=== PATIENT | male | born 1950 | race Caucasian/White ===

== ENCOUNTER 2017-08-16 11:47 | Inpatient (IN) | payer OTHER ==
[2017-08-16] VITALS (7 sets, daily range): BP systolic 92–143; BP diastolic 52–94
[~2017-08-16] VITALS: Ht 170.2 cm; Wt 73.9 kg
[~2017-08-16 11:47] MED LIST: ALPH-E-MIXED-4400 IU PO; ATORVASTATIN CA10 MG PO; CHLORDIAZEPOXID25 M3 PO; CO-Q-10 100 MG-1 SGL PO; FISH OIL REGUL300 MG PO; FOLIC ACID1 M1 PO; HARD NAILS2500 MCG PO; LIPITOR20 M2 PO; LISINOPRIL20 MG PO; MINOCYCLINE HC100 MG PO; MULTIVITAMIN1 TAB PO; PRILOSEC20 MG PO; PROPRANOLOL HCL10 M1 PO; RITE AID BIO2500 MCG PO; VITAMIN B-1100 MG PO; VITAMIN B12500 MCG PO; VITAMIN C500 M3 PO; VITAMIN D32000 I1 PO
[2017-08-16 12:26] LABS: ABSOLUTE BASOPHIL COUNT 0 /CUMM (0.0-0.2); ABSOLUTE EOSINOPHIL COUNT 0 /CUMM (0.0-0.7); ABSOLUTE GRANULOCYTE CT 6.1 /CUMM (1.4-6.5); ABSOLUTE LYMPH COUNT 0.8 /CUMM (1.2-3.4); ABSOLUTE MONOCYTE COUNT 0.6 /CUMM (0.10-0.60); BASOPHIL % 0.6 % (0.0-2.0); EOSINOPHIL % 0.5 % (0-5); GRANULOCYTE % 79.8 % (42.2-75.2); HEMATOCRIT 42.6 % (42-52); MEAN CORPUSCULAR HGB 35.5 PG (27.0-31.0); MEAN CORPUSCULAR HGB CONC 34.9 G/DL (33.0-37.0); MEAN CORPUSCULAR VOLUME 101.6 FL (80.0-94.0); PLATELET COUNT 134 /CUMM (130-400); RBC DISTRIBUTION WIDTH 14.3 % (11.5-14.5); RED BLOOD CELL CT 4.19 /CUMM (4.70-6.10); WHITE BLOOD CELL COUNT 7.7 /CUMM (4.8-10.8)
--- NOTE | 2017-08-16 17:06 | CT SCAN REPORT ---
EXAMINATION: CT ABDOMEN AND PELVIS WITHOUT CONTRAST CLINICAL INFORMATION: Pancreatitis. COMPARISON: CT abdomen and pelvis 03/02/2014. TECHNIQUE: Multidetector volumetric imaging was performed from the superior aspect of the liver through the pubic symphysis. Sagittal and coronal reformatted images were obtained on the technologist's workstation. DLP: 445.59 mGy-cm FINDINGS: LUNG BASES: The visualized lung bases are unremarkable. There are coronary artery calcifications present. There is no pericardial effusion. LIVER, GALLBLADDER, AND BILIARY TREE: Low attenuation of liver parenchyma due to fatty change. No focal liver lesion. No intrahepatic bile duct dilatation. The gallbladder is unremarkable with no evidence of radiopaque gallstones, gallbladder wall thickening, or obvious pericholecystic inflammatory changes. PANCREAS: There is edema around the pancreatic body and tail with fluid extending along the anterior pararenal fascia and around the left upper quadrant in the paracolic gutter and adjacent to the spleen. There is no pseudocyst. The pancreas is of normal size. There is no pancreatic duct dilatation. There is a 1.7 x 1.3 cm nodule at the anterior lateral surface of the body and tail of the pancreas, axial image 236 (3), coronal image 41. This has a density measurement of 41 Hounsfield units similar to the adjacent pancreatic tissue. Has a thin hyperdense rim. This was not present on the CAT scan of 03/02/2014. Could be small pseudocyst. No pancreatic calcification. No pancreatic duct dilatation. SPLEEN: Unremarkable. ADRENAL GLANDS: Unremarkable. KIDNEYS AND URETERS: The kidneys are normal in size, shape, and attenuation. No hydronephrosis, hydroureter, or calculi seen. No perinephric stranding. BLADDER: Unremarkable. GASTROINTESTINAL TRACT: There are a few diverticula of the left colon and sigmoid, but no diverticulitis. There is no acute change of the bowel. No bowel obstruction. No bowel wall thickening or edema. The appendix is not seen. The small bowel loops are unremarkable. There is a small hiatal hernia. ABDOMINAL WALL: No significant hernia is appreciated. LYMPH NODES: Normal. VASCULAR: There are vascular wall calcifications of the aorta without aneurysm. PELVIC VISCERA: Prostate measures 5.3 cm transverse. OSSEOUS STRUCTURES: Degenerative spondylosis spine with multilevel endplate spurring of the lumbar and lower thoracic vertebrae. There is a minimal anterior listhesis of L4 and L5 due to facet joint degenerative change. There is no spondylolysis. IMPRESSION: 1. Edema around the body and tail of pancreas consistent with pancreatitis. 2. Small nodule at the surface of the body/tail of the pancreas, new since the CAT scan of 02/27/2014. Possible small developing pseudocyst. This can be further assessed with MRI. 3. Mild diverticulosis of left colon without diverticulitis. 4. Diffuse fatty change of liver.
--- NOTE | 2017-08-16 17:15 | ED GI/GU/ABDOMINAL COMPLAINT ---
History of Present Illness General Chief Complaint: General Adult Stated Complaint: SIB ASUNCION, PANCREATITES PER PT Source: patient, family, old records Exam Limitations: no limitations Vital Signs & Intake/Output Vital Signs & Intake/Output Vital Signs Date Time Temp Pulse Resp B/P B/P Pulse O2 O2 Flow FiO2 Mean Ox Delivery Rate 08/17 0722 100.0 116 20 108/70 95 Room Air 08/16 2236 99.5 113 20 139/94 97 Room Air 08/16 2056 97.7 112 20 132/90 94 Room Air 08/16 2034 112 16 138/89 95 Room Air 08/16 1857 98.4 109 16 132/90 08/16 1855 98.4 109 16 132/90 96 Room Air 08/16 1722 97.8 117 16 143/87 08/16 1710 97.8 117 16 143/87 96 Room Air 08/16 1605 97.6 101 16 132/92 08/16 1602 97.6 101 16 132/92 96 Room Air 08/16 1455 97.5 108 20 130/94 08/16 1455 97.5 108 20 130/94 96 Room Air 08/16 1355 97.7 133 20 157/102 97 Room Air 08/16 1204 97.5 72 16 92/52 08/16 1158 97.5 72 16 92/52 97 Room Air ED Intake and Output 08/17 0000 08/16 1200 Intake Total 200 Output Total Balance 200 Intake, IV 200 Patient 164 lb Weight Weight Bed scale Measurement Method Allergies Coded Allergies: NO KNOWN ALLERGIES (04/12/11) Reconcile Medications Atorvastatin Calcium (Lipitor) 20 MG TABLET 1 TAB PO DAILY CHOLESTEROL ( Reported) Triage Note: PT TO ED SIB DR MUIR. PT HAS A HX OF PANCREATITIS, STATES IT FEELS THE SAME. IS HAVING 7/10 ABD PAIN. REPORTS HE IS ALSO DETOXING FROM ETOH. LAST DRINK ON WEDNESDAY. USUALLY DRINKS ABOUT 2-3 PINTS A DAY. LAST DETOX 1.5 YEARS AGO WHEN HE WAS HERE AND ADMITTED TO THE ICU. STATES THAT HE HAS BEEN HAVING HALLUCINATIONS THAT CAN LAST 6 HOURS. STATES THAT THE HALLUCINATIONS HAVE BEEN OF PEOPLE AND ANIMALS WALKING AROUND. HAS ALSO EXPERIENCED AUDITORY HALLUCINATIONS. DENIES ANY HALLUCINATIONS AT THIS TIME. CURRENTLY FEELS SHAKEY, PT UNSTEADY ON FEET AND NEEDS ASSIST X2. ALSO HAS A MINOR NIEVES AT THIS TIME. Triage Nurses Notes Reviewed? yes Onset: Gradual Duration: day(s):, constant, continues in ED, getting worse Quality/Severity: severe Location: epigastric HPI: Patient presents for evaluation of possible pancreatitis. Patient has a past medical history of pancreatitis secondary to alcohol intake. He states he had an onset, gradually, of abdominal pain about 2 weeks ago. It is been a dull aching constant pain with occasional low back pain. Patient has vomited but otherwise denies fever, cold symptoms, diarrhea, dysuria or bleeding. Last alcohol intake was about 3 days ago. Patient typically drinks about 2-3 pints of vodka daily. Past History Travel History Traveled to [place] past 21 day No Medical History Any Pertinent Medical History? see below for history Neurological: 12/19/2015: FALL EENT: 12/19/2015: FXD NOSE POST FALL Cardiovascular: hypertension, hyperlipidemia Respiratory: NONE Gastrointestinal: GERD, hiatal hernia, TG/EtOH PANCREATITIS DIVERTICULOSIS COLI COLON TVA/TA HP-NEGATIVE GASTRITIS BENIGN DISTAL ESOPHAGEAL STRICTURE DISTAL ESOPHAGEAL DIVERTICULUM ESOPHAGEAL TERTIARY CONTRACTIONS Hepatic: FATTY LIVER/EtOH ABUSE Renal: NONE Musculoskeletal: falls Psychiatric: alcohol dependence Endocrine: NONE Blood Disorders: anemia (MACROCYTIC), pancytopenia (PROB EtOH RELATED) Cancer(s): NONE AIR MARSHAL/Reproductive: NONE History of MRSA: No History of VRE: No History of CDIFF: No Surgical History Surgical History: N Psychosocial History Who do you live with Spouse Services at Home None What is your primary language [place] Citizen Tobacco Use: Never used Family History Family History, If Any: MOTHER FH: hyperlipidemia TIAs FATHER, , Age 79; Cause: OBS (organic brain syndrome). BROTHER Hx Contributory? No Review of Systems Review of Systems Constitutional: Reports: no symptoms. EENTM: Reports: no symptoms. Respiratory: Reports: no symptoms. Cardiovascular: Reports: no symptoms. GI: Reports: see HPI. Genitourinary: Reports: no symptoms. Musculoskeletal: Reports: no symptoms. Skin: Reports: no symptoms. Neurological/Psychological: Reports: no symptoms. Hematologic/Endocrine: Reports: no symptoms. Immunologic/Allergic: Reports: no symptoms. All Other Systems: Reviewed and Negative Physical Exam Physical Exam Gastrointestinal: SEE BELOW Comments: Gen.: Well-nourished, well-developed, no acute respiratory distress. Head: Normocephalic, atraumatic. Eyes: Normal inspection bilaterally Ears: Normal inspection bilaterally Nose: Normal inspection Throat/mouth : Moist mucosa Neck: Supple, full range of motion, no goiter Heart: Regular rate and rhythm, no murmurs rubs or gallops Lungs: Clear to auscultation bilaterally with normal air entry Chest: Nontender Back: Normal range of motion Abdomen: Soft, epigastric tenderness with brief voluntary guarding but no rebound nondistended, normal bowel sounds, no apparent hepatomegaly. Extremities: Normal range of motion grossly, equal radial pulses, no cyanosis clubbing or edema Neurologic: Cranial nerves grossly intact, speech is clear Skin: warm and dry Psychiatric: Calm, cooperative, no apparent delusions or hallucinations Core Measures ACS in differential dx? No Sepsis Present: No Sepsis Focused Exam Completed? No Progress Differential Diagnosis: BILIARY COLIC, PANCREATITIS, PEPTIC ULCER DISEASE, GASTRITIS, DIVERTICULITIS Plan of Care: Orders Procedure Date/time Status Nothing by Mouth 08/17 B Active Change service to 08/17 0752 Active US-LIMITED ABDOMEN 08/17 0600 Active HEPATIC FUNCTION PANEL 08/17 0600 Active C-REACTIVE PROTEIN 08/17 0600 Active CBC WITHOUT DIFFERENTIAL 08/17 0600 Active BASIC ELECTROLYTES PLUS BUN&CR 08/17 0600 Active Lab Add-on Test 08/17 UNK Active Weight 08/16 210 Complete Vital Signs 08/17 2107 Active Teach/Educate 08/17 2107 Active Pain Treatment and Response 08/17 2107 Active Nutritional Intake, Monitor 08/17 2107 Active Isolation 08/17 2107 Active Intake & Output 08/17 2107 Active Patient Care Conference 08/17 2107 Active Activity/Ambulation 08/17 2107 Active Pathway - chart 08/16 194 Active House Staff 08/16 1948 Active Misc Message 08/16 1754 Active ED Holding Orders 08/16 1754 Active Vital Signs 08/16 1754 Active Code Status 08/16 1754 Active Patient Data 08/16 1733 Active Admit to inpatient 08/16 1732 Active Pathway - chart 08/16 1601 Active CIWA 08/16 1601 Active Intake & Output 08/16 1250 Active PHOSPHORUS 08/16 1205 Complete MAGNESIUM 08/16 1205 Complete LDH (LACT ACID DEHYDROGENASE) 08/16 1205 Complete ETHANOL 08/16 1205 Complete DIRECT BILIRUBIN 08/16 1205 Complete C-REACTIVE PROTEIN 08/16 1205 Complete TROPONIN LEVEL 08/16 1153 Complete LIPASE 08/16 1153 Complete COMPREHENSIVE METABOLIC PANEL 08/16 1153 Complete CBC WITHOUT DIFFERENTIAL 08/16 1153 Complete AMYLASE 08/16 1153 Complete Lab Add-on Test 08/16 UNK Active VTE Mechanical Prophylaxis 08/16 UNK Active Patient Safety Monitor 08/16 UNK Active SOCIAL WORK CONSULT 08/16 UNK Active Current Medications Sig/Susie Start time Last Medication Dose Stop Time Status Admin Folic Acid 1 MG DAILY 08/17 0900 CAN (Folic Acid) Magnesium Chloride 64 MG TID 08/17 09 AC (Slow-Mag) Multivitamins 1 TAB DAILY 08/17 0900 AC (Theragran Vitamins) Lactated Ringer's 1,000 ML .Q5H 08/17 0800 AC 08/17 (Lactated Ringers) 08/17 1259 0813 Heparin Sodium 5,000 UNIT Q8 08/17 0600 AC 08/17 (Porcine) 0540 Lorazepam 2 MG Q6 08/17 0600 AC 08/17 (Ativan) 0538 Thiamine HCl 500 MG TID 08/16 2100 CAN (Vitamin B-1) 08/19 203 Thiamine HCl 500 MG TID 08/16 2100 AC 08/16 (Vitamin B-1) 08/19 1459 2213 Dextrose/Water 250 ML (D5W) Tramadol HCl 50 MG Q6P PRN 08/16 2099 AC (Ultram) Folic Acid 1 MG DAILY 08/16 204 AC 08/16 (Folic Acid) 2319 Ondansetron HCl 4 MG Q6P PRN 08/16 2015 AC (Zofran) Lorazepam 2 MG Q2P PRN 08/16 1615 AC 08/17 (Ativan) 0424 Lorazepam 1 MG Q2P PRN 08/16 1615 AC 08/17 (Ativan) 0813 Laboratory Tests 08/17/17 0735: Sodium Pending, Potassium Pending, Chloride Pending, Carbon Dioxide Pending, Anion Gap Pending, BUN Pending, Creatinine Pending, BUN/Creatinine Ratio Pending , Total Bilirubin Pending, Direct Bilirubin Pending, AST Pending, ALT Pending, Alkaline Phosphatase Pending, C-Reactive Prot, Quant Pending, Total Protein Pending, Albumin Pending, CBC w Diff Pending, WBC Pending, RBC Pending, Hgb Pending, Hct Pending, MCV Pending, MCH Pending, MCHC Pending, RDW Pending, Plt Count Pending, MPV Pending 08/16/17 1205: Anion Gap 14, Estimated GFR 43 L, BUN/Creatinine Ratio 11.9, Glucose 166 H, Calcium 8.9, Phosphorus 2.7, Magnesium 1.3 L, Total Bilirubin 2.4 H, Direct Bilirubin 0.9 H, AST 125 H, ALT 60, Alkaline Phosphatase 66, Lactate Dehydrogenase 710 H, Troponin I < 0.01, C-Reactive Prot, Quant 8.2 H, Total Protein 7.6, Albumin 4.8, Globulin 2.8, Albumin/Globulin Ratio 1.7, Amylase 541 H, Lipase 5921 H, CBC w Diff NO MAN DIFF REQ, RBC 4.19 L, MCV 101.6 H, MCH 35.5 H, MCHC 34.9, RDW 14.3, MPV 8.0, Gran % 79.8 H, Lymphocytes % 10.7 L, Monocytes % 8.4, Eosinophils % 0.5, Basophils % 0.6, Absolute Granulocytes 6.1, Absolute Lymphocytes 0.8 L, Absolute Monocytes 0.6, Absolute Eosinophils 0, Absolute Basophils 0, Serum Alcohol < 10.0 08/16/17 1200: Serum Alcohol Cancelled Initial ED EKG: none Comments: I updated Сергей after labs were available and again after the CAT scan report. He was feeling better after medications administered for alcohol withdrawal. 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 - Alcohol-induced chronic pancreatitis Secondary Impressions: Alcohol withdrawal delirium, acute, hyperactive Referrals: Alvino TOMLIN,Shayne Goldberg (PCP/Family) Departure Forms: Customer Survey General Discharge Information Admission Note Spoke With: Gerard TOMLIN,Vero Bcuk Documentation of Exam: Documentation of any treatments & extenuating circumstances including Concerns Regarding Discharge (functional status, medication knowledge or non-compliance, living conditions, etc.) that warrant an admission rather than observation: Patient is suffering an acute exacerbation of chronic alcohol-induced pancreatitis. Lipase is over 5900 and CAT scan shows changes consistent with pancreatitis and the possibility of a pseudocyst development. This patient is also showing signs of acute alcohol withdrawal with hypertension and tachycardia and mild hallucinations. Patient cannot be treated safely as an outpatient given his risk of seizures and delirium tremens. In addition his acute pancreatitis has compromised not only his ability to eat but also to comply with outpatient treatment. He would likely return in worse clinical condition including worsening pain, third spacing of fluid and worsening alcohol withdrawal. I believe he now requires hospitalization for treatment of his pancreatitis with IV fluids and pain and nausea control, monitoring of lipase and diet advancement as tolerated. In addition the patient should be monitored for signs of acute alcohol withdrawal and treated with IV benzodiazepines. CIWA score should be monitored and treated accordingly. Critical Care Note Critical Care Note Critical Care Time: 30-74 min
--- NOTE | 2017-08-16 18:04 | History & Physical ---
Hans TOMLIN,[facility] 08/16/17 1804: General Information and HPI MD Statement: I have seen and personally examined AIDEE TABARES and documented this H&P. The patient is a 67 year old M who presented with a patient stated chief complaint of abdominal pain. Source of Information: patient, old records Exam Limitations: unable to give history, not alert/orientated History of Present Illness: 67-year-old gentleman with a past medical history significant for hypertension, hyperlipidemia, elevated triglycerides, multiple recurrent admission to [facility] for etoh induceced pancreatitis (last one in november 2015),GI workup at [place] including EUS, presents for evaluation of abdominal pain. When seen in the room, patient had already received 2mg IV ativan x2, and therefore was only oriented to time and person. Patient was not able to give a clear history and seem to be disoriented and very confused. He was able to tell us that he normally drinks 3 pints (?) a day and his last drink was on Wednesday. He did deny suicidal/homicidal ideation. Review of system was also unobtainable. He did manage to inform us that he is and lives with his , we attempted twice to call the 2 numbers on file, but our calls went to voice mail. Per ED records, patient seem to have presented with abdominal pain and also request for detox. His last admission in November 2015 for pancreatitis and etoh resulted in ICU transfer due to need for Ativan drip. No report of withdrawal seizure. Allergies/Medications Allergies: Coded Allergies: NO KNOWN ALLERGIES (04/12/11) Home Med list Atorvastatin Calcium (Lipitor) 20 MG TABLET 1 TAB PO DAILY CHOLESTEROL ( Reported) Past History Travel History Traveled to [place] past 21 day No Medical History Neurological: 12/19/2015: FALL EENT: 12/19/2015: FXD NOSE POST FALL Cardiovascular: hypertension, hyperlipidemia Respiratory: NONE Gastrointestinal: GERD, hiatal hernia, TG/EtOH PANCREATITIS DIVERTICULOSIS COLI COLON TVA/TA HP-NEGATIVE GASTRITIS BENIGN DISTAL ESOPHAGEAL STRICTURE DISTAL ESOPHAGEAL DIVERTICULUM ESOPHAGEAL TERTIARY CONTRACTIONS Hepatic: FATTY LIVER/EtOH ABUSE Renal: NONE Musculoskeletal: falls Psychiatric: alcohol dependence Endocrine: NONE Blood Disorders: anemia (MACROCYTIC), pancytopenia (PROB EtOH RELATED) Cancer(s): NONE YARN WEIGHER/Reproductive: NONE History of MRSA: No History of VRE: No History of CDIFF: No Surgical History Surgical History: N Past Family/Social History Family History Relations & Conditions if any MOTHER FH: hyperlipidemia TIAs FATHER, , Age 79; Cause: OBS (organic brain syndrome). BROTHER Psychosocial History Who Do You Live With? spouse Services at Home: None Primary Language: Azeri Living Will? 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 unknown Functional Ability ADLs Independent: dressing, eating, toileting, bathing. Ambulation: independent IADLs Independent: shopping, housework, finances, food prep, telephone, transportation , medication admin. Review of Systems Review of Systems Constitutional: Reports: see HPI. Exam & Diagnostic Data Last 24 Hrs of Vital Signs/I&O Vital Signs Date Time Temp Pulse Resp B/P B/P Pulse O2 O2 Flow FiO2 Mean Ox Delivery Rate 08/16 1722 97.8 117 16 143/87 08/16 1710 97.8 117 16 14387 96 Room Air 08/16 1605 97.6 101 16 132/92 08/16 1602 97.6 101 16 132/92 96 Room Air 08/16 1455 97.5 108 20 130/94 08/16 1455 97.5 108 20 130/94 96 Room Air 08/16 1355 97.7 133 20 157/102 97 Room Air 08/16 1204 97.5 72 16 92/52 08/16 1158 97.5 72 16 92/52 97 Room Air Physical Exam General Appearance awake but disoriented. Only oriented to time and person. Skin No Significant Lesion Skin Temp/Moisture Exam: Warm/Dry Sepsis Skin Exam (color): Normal for Ethnicity HEENT Atraumatic, Mucous Membr. moist/pink Neck Supple, No JVD Lymphatic Cervical nl Cardiovascular Normal S1, Normal S2, tachycardic Lungs Clear to Auscultation, Normal Air Movement Abdomen Normal Bowel Sounds, Soft, not able to assess tenderness due to disorientation. Neurological Normal Speech, Strength at 5/5 X4 Ext, Normal Tone, Sensation Intact Extremities No Tenderness/Swelling Last 24 Hrs of Labs/Matt: Laboratory Tests 08/16/17 1205: Anion Gap 14, Estimated GFR 43 L, BUN/Creatinine Ratio 11.9, Glucose 166 H, Calcium 8.9, Total Bilirubin 2.4 H, Direct Bilirubin Pending, AST 125 H, ALT 60, Alkaline Phosphatase 66, Lactate Dehydrogenase Pending, Troponin I < 0.01, Total Protein 7.6, Albumin 4.8, Globulin 2.8, Albumin/Globulin Ratio 1.7, Amylase 541 H, Lipase 5921 H, CBC w Diff NO MAN DIFF REQ, RBC 4.19 L, MCV 101.6 H, MCH 35.5 H, MCHC 34.9, RDW 14.3, MPV 8.0, Gran % 79.8 H, Lymphocytes % 10.7 L, Monocytes % 8.4, Eosinophils % 0.5, Basophils % 0.6, Absolute Granulocytes 6.1, Absolute Lymphocytes 0.8 L, Absolute Monocytes 0.6, Absolute Eosinophils 0, Absolute Basophils 0, Serum Alcohol < 10.0 08/16/17 1200: Serum Alcohol Cancelled Diagnostic Data Other Results SERVICE DATE: 08/16/17 EXAM TYPE: CAT - CT ABD & PELVIS W/O IV CONTRAS EXAMINATION: CT ABDOMEN AND PELVIS WITHOUT CONTRAST CLINICAL INFORMATION: Pancreatitis. COMPARISON: CT abdomen and pelvis 03/02/2014. TECHNIQUE: Multidetector volumetric imaging was performed from the superior aspect of the liver through the pubic symphysis. Sagittal and coronal reformatted images were obtained on the technologist's workstation. DLP: 445.59 mGy-cm FINDINGS: LUNG BASES: The visualized lung bases are unremarkable. There are coronary artery calcifications present. There is no pericardial effusion. LIVER, GALLBLADDER, AND BILIARY TREE: Low attenuation of liver parenchyma due to fatty change. No focal liver lesion. No intrahepatic bile duct dilatation. The gallbladder is unremarkable with no evidence of radiopaque gallstones, gallbladder wall thickening, or obvious pericholecystic inflammatory changes. PANCREAS: There is edema around the pancreatic body and tail with fluid extending along the anterior pararenal fascia and around the left upper quadrant in the paracolic gutter and adjacent to the spleen. There is no pseudocyst. The pancreas is of normal size. There is no pancreatic duct dilatation. There is a 1.7 x 1.3 cm nodule at the anterior lateral surface of the body and tail of the pancreas, axial image 236 (3), coronal image 41. This has a density measurement of 41 Hounsfield units similar to the adjacent pancreatic tissue. Has a thin hyperdense rim. This was not present on the CAT scan of 03/02/2014. Could be small pseudocyst. No pancreatic calcification. No pancreatic duct dilatation. SPLEEN: Unremarkable. ADRENAL GLANDS: Unremarkable. KIDNEYS AND URETERS: The kidneys are normal in size, shape, and attenuation. No hydronephrosis, hydroureter, or calculi seen. No perinephric stranding. BLADDER: Unremarkable. GASTROINTESTINAL TRACT: There are a few diverticula of the left colon and sigmoid, but no diverticulitis. There is no acute change of the bowel. No bowel obstruction. No bowel wall thickening or edema. The appendix is not seen. The small bowel loops are unremarkable. There is a small hiatal hernia. ABDOMINAL WALL: No significant hernia is appreciated. LYMPH NODES: Normal. VASCULAR: There are vascular wall calcifications of the aorta without aneurysm. PELVIC VISCERA: Prostate measures 5.3 cm transverse. OSSEOUS STRUCTURES: Degenerative spondylosis spine with multilevel endplate spurring of the lumbar and lower thoracic vertebrae. There is a minimal anterior listhesis of L4 and L5 due to facet joint degenerative change. There is no spondylolysis. IMPRESSION: 1. Edema around the body and tail of pancreas consistent with pancreatitis. 2. Small nodule at the surface of the body/tail of the pancreas, new since the CAT scan of 02/27/2014. Possible small developing pseudocyst. This can be further assessed with MRI. 3. Mild diverticulosis of left colon without diverticulitis. 4. Diffuse fatty change of liver. DICTATED BY: Luis David MD DATE/TIME DICTATED:08/16/171635 Assessment/Plan Assessment: 67-year-old gentleman with a significant history of recurrent pancreatitis secondary to alcohol abuse, hypertriglyceridemia presents with complaints of abdominal pain in the setting of laboratory findings of elevated lipase and radiological findings of inflammatory features of pancreas. Impression * Abdominal pain. * Pancreatitis as evident by elevated lipase levels and radiological findings of inflammation around the pancreas, and abdominal pain. BISAP socre of 2 for age and mental status change (even though etoh is most likely the cause of mental changes). There is also possible early formation of pseudocyst * Alcohol detoxification. * MONALISA as evident by a creatinine level of 1.6 today compared to his baseline of around 0.8. Possibly 2/2 to pancreatitis. Plan Admit to general medicine floor Clear liquids for now Banana bag X1 Aggressive IV fluids with lactated Ringer 200 mils per hour for today Will obtain CRP tomorrow for prognosis factors GI consult for pseudocyst Ativan as needed per KARLEE High dose Thiamine 500 mg tid for 3 days. Lorazepam 2 mg every 6 Will closely monitor for DTs, low threshold for ICU transfer Social consult GI consult tomorrow morning code status: Full code DVT: Heparin As Ranked By This Provider Problem List: 1. ACUTE PANCREATITIS 2. ETOH DETOX Core Measures/Misc (01/10) Acute Coronary Syndrome ACS Diagnosis: No Congestive Heart Failure Congestive Heart Failure Diagnosis No Cerebrovascular Accident CVA/TIA Diagnosis: No VTE (View Protocol) VTE Risk Factors Acute Medical Illness No Mechanical VTE Prophylaxis d/t N/A MechProphylax Ordered No VTE Pharm Prophylaxis d/t NA PharmProphylax ordered Sepsis (View protocol) Sepsis Present: No Tobias Mcleod 08/16/17 2334: Attending MD Review Statement Attending Statement Attending MD Statement: examined this patient, discuss w/resident/PA/DIRECTOR TRIAL, agreed w/resident/PA/DIRECTOR TRIAL, discussed with family, reviewed EMR data (avail), reviewed images, amended to note Attending Assessment/Plan: CC: Abdominal pain, alcohol withdrawal PMH: Alcoholism, recurrent pancreatitis, HLD Hx is mostly obtained from ER charts and patient's . After his previous discharge he was sober until January 2017 when he gradually started drinking alcohol but in last 2-3 weeks he was binge drinking according to his . He was not eating as much and then on Wednesday, August 13, he decided to stop drinking abruptly. Wednesday morning he complained of some pain in abdomen to his and had 2-3 times vomiting, nonbloody, nonbilious, clear. Wednesday he could eat a little but Wednesday evening he started hallucinating according to his , she waited overnight and brought him in ER Wednesday. Patient stated To ER that he had history of pancreatitis and he has similar pain currently 11/02, nonradiating, no aggravating or relieving factors. When I spoke to the patient, he endorses the pain but appears confused, he stated that he has been taking aspirin for the pain at home. He drinks 2-3 pints of vodka per day. is very well aware of his alcohol withdrawal, delirium and pancreatitis episode. Vitals: Afebrile, pulse 72- 133, respiration 16, blood pressure 92/52 on arrival improved to 130/94, saturating 97% on room air On exam: Alert, not oriented, hallucinating visual, irrelevant talk, cooperative , no acute distress, neck supple, JVD normal, no lymphadenopathy, mucosa dry, follows instructions, strength apparently normal in all extremities but complete neurological examination is difficult because of his delirium, no dependent edema, no obvious skin rashes or inflammation CVS: S1-S2, RRR. RS: Clear to auscultate bilaterally. Abdomen: Soft, NT, ND, bowel sounds present. Roe's sign negative. CT abdomen and pelvis without IV contrast: 1. Edema around the body and tail of pancreas consistent with pancreatitis. 2. Small nodule at the surface of the body/tail of the pancreas, new since the CAT scan of 02/27/2014. Possible small developing pseudocyst. This can be further assessed with MRI. 3. Mild diverticulosis of left colon without diverticulitis. 4. Diffuse fatty change of liver. Assessment and plan 67-year-old male with history of recurrent pancreatitis secondary to alcohol and alcohol abuse presented in ER after completely abstaining alcohol since last 4 days, epigastric pain since last 3 days, 3 episodes of vomiting, decreased appetite and now hallucinating according to his . He has gone through this in the past and she is well aware of all the symptoms, he was admitted in ICU for similar symptoms. Patient does not have any history of alcohol related seizures. Patient is not oriented, hallucinating, mild agitation but CIWA score so for 11- 14, responding to IV Ativan. He is dehydrated on examination, mild epigastric tenderness but Roe's sign negative. His creatinine increased from 0.8 to 1.6 suggestive of acute kidney injury probably secondary to pancreatitis and dehydration, transaminitis and bilirubin is elevated again probably secondary to dehydration or alcoholism. For now we will admit him on general medicine floor, closely monitor if he requires high doses of Ativan or higher CIWA scores, low threshold to transfer to ICU for Ativan drip. Other than atorvastatin patient is not on any other home medications. CT suggestive of small cyst likely pseudocyst and pancreas, we will obtain GI opinion. + Delirium tremens + Acute recurrent pancreatitis + Acute kidney injury + Transaminitis with hyperbilirubinemia - Admit to general medicine - Continue aggressive hydration - Check right upper quadrant ultrasound - check CRP for 3 days as prognostic indicator - Check magnesium and phosphorus, replace if low - Adequate pain control - Check LFT in a.m. - Continue scheduled Ativan PO 2 milligram every 6 hours - Continue when necessary Ativan according to CIWA protocol - High-dose thiamine - PO folic acid - Low threshold to ICU transfer if severely agitated (history of significant DTs ) - DVT prophylaxis - GI consult I had a long conversation with patient's , regarding his clinical condition, low threshold to ICU transfer, delirium and pancreatitis. She understands it. Patient has living will but she is not aware of his wishes, discussed that we will continue full resuscitation for now, will readdress in a.m.
--- NOTE | 2017-08-16 23:37 | Admission Certification ---
Admission Certification Certification Statement - As attending physician, I certify that at the time of - admission, based on clinical presentation, severity of - symptoms, need for further diagnostic testing and - therapeutic interventions, and risk of adverse outcomes - without in-hospital treatment, in my clinical assessment, - this patient requires an acute hospital stay for a minimum - of two nights or longer. I have also considered psychsocial - factors such as support system, advanced age, financial - issues, cognitive issues, and failed out-patient treatments, - past re-admission history, safety of patient, and lack of - compliance as applicable. Specific rationale supporting this admission is: Delirium tremens, acute recurrent pancreatitis
[2017-08-17] VITALS (8 sets, daily range): BP systolic 108–116; BP diastolic 58–97
--- NOTE | 2017-08-17 07:18 | PN- Housestaff ---
[facility] 0718: Subjective Follow-up For: Acute on chronic pancreatitis with developing pseudocyst Alcohol withdrawal MONALISA Subjective: No overnight events. Patient remained afebrile. Seen and examined this morning. He seemed confused. Patient denied any chest pain, palpitation, nausea, vomiting, chills, fever, abdominal pain and dysuria. He has one-on-one sitter considering his confusion. Review of Systems Constitutional: Denies: chills, fever. EENTM: Reports: no symptoms. Cardiovascular: Denies: chest pain, orthopena, palpitations. Respiratory: Denies: cough, short of breath, sputum production. Gastrointestinal: Denies: abdominal pain, diarrhea, nausea. Genitourinary: Reports: no symptoms. Musculoskeletal: Reports: see HPI. Neurological/Psychological: Reports: confusion. Objective Last 24 Hrs of Vital Signs/I&O Vital Signs Date Time Temp Pulse Resp B/P B/P Pulse O2 O2 Flow FiO2 Mean Ox Delivery Rate 08/17 0722 100.0 116 20 108/70 95 Room Air 08/166 99.5 113 20 139/94 97 Room Air 08/166 97.7 112 20 132/90 94 Room Air 08/16 2034 112 16 138/89 95 Room Air 08/16 1857 98.4 109 16 132/90 08/16 1855 98.4 109 16 132/90 96 Room Air 08/16 1722 97.8 117 16 143/87 08/16 1710 97.8 117 16 143/87 96 Room Air 08/16 1605 97.6 101 16 132/92 08/16 1602 97.6 101 16 132/92 96 Room Air 08/16 1455 97.5 108 20 130/94 08/16 1455 97.5 108 20 130/94 96 Room Air 08/16 1355 97.7 133 20 157/102 97 Room Air 08/16 1204 97.5 72 16 92/52 08/16 1158 97.5 72 16 92/52 97 Room Air Intake & Output 08/17 1600 08/17 0800 08/17 0000 Intake Total 2150 200 Output Total Balance 2150 200 Intake, IV 2150 200 Patient 164 lb Weight Weight Bed scale Measurement Method Physical Exam General Appearance: Alert, Cooperative Skin: No Rashes Skin Temp/Moisture Exam: Warm/Dry Sepsis Skin Exam (color): Normal for Ethnicity HEENT: Atraumatic, PERRLA, EOMI Neck: Supple Cardiovascular: Normal S1, Normal S2 Lungs: Clear to Auscultation Abdomen: Soft, No Tenderness Neurological: Normal Speech, Strength at 5/5 X4 Ext, Normal Tone Extremities: No Edema Assessment/Plan Assessment: 67-year-old gentleman with a past medical history significant for hypertension, hyperlipidemia, elevated triglycerides, multiple recurrent admission to [facility] for etoh induceced pancreatitis (last one in november 2015),GI workup at [place] including EUS, presents for evaluation of abdominal pain. We are follow the patient on general medicine floor following problems; Acute on chronic pancreatitis: -Possibly alcohol induced. -Nothing by mouth to rest for the pancreas -Ringer lactate at the rate of 200 mL per hour -IV Zofran as needed -GI recommendations appreciated Alcohol withdrawal: -Follow CIWA protocol -Ativan 2 mg every 4 hourly -High-dose thiamine to prevent the Wernicke's encephalopathy -Vitamin supplementation -Watch out for DTs -Low threshold to transfer to ICU MONALISA: -Probably due to dehydration -Avoid nephrotoxic medications -Gentle IV hydration -Monitor input and output DVT prophylaxis: Mechanical and s/c heparin CODE STATUS: Full code Problem List: 1. ACUTE PANCREATITIS 2. MONALISA (acute kidney injury) 3. Alcohol withdrawal Pain Ratin Pain Location: none Pain Goal: Remain pain free Pain Plan: Pain pathway Tomorrow's Labs & Rationales: cbc/bep Javier TOMLIN,Tianna 08/17/17 1121: Attending MD Review Statement Attending Statement Attending MD Statement: examined this patient, discuss w/resident/PA/RISK AND COMPLIANCE ANALYTICS DIRECTOR, agreed w/resident/PA/RISK AND COMPLIANCE ANALYTICS DIRECTOR, reviewed EMR data (avail), discussed with nursing, discussed with case mgmt, amended to note Attending Assessment/Plan: Patient seen and examined. Since admission he has required 9 mg of IV Ativan in addition to the standard normal dose. Nursing staff reports that he is agitated and occasionally trying to get out of bed unassisted. On examination he has just been medicated almost currently calm. CIWA scores however have been running high since admission. He is oriented and does answer questions appropriately. He is mildly tremulous. He denies abdominal pain. Denies nausea vomiting. Recommendations: -Increase benzodiazepine therapy or change in Ativan to 2 mg orally every 4 hours. Continue as needed IV Ativan as needed. -Continue IV hydration. If patient continues to deny abdominal pain and is alert he may be advanced to clear liquid diet. -Right upper quadrant sonogram noted. His pancreatitis is likely secondary to alcohol use. No evidence of biliary stones. Is also noted to have hepatic steatosis on mild hepatomegaly unchanged from prior exams. -Supplement potassium orally. Repeat serum chemistry and magnesium in a.m. Repeat CBCs in a.m. only if there is a change in his clinical status.
[2017-08-17 08:43] LABS: ABSOLUTE BASOPHIL COUNT 0 /CUMM (0.0-0.2); ABSOLUTE GRANULOCYTE CT 4.2 /CUMM (1.4-6.5); BASOPHIL % 0.3 % (0.0-2.0); WHITE BLOOD CELL COUNT 5.7 /CUMM (4.8-10.8)
[2017-08-17 09:07] LABS: ABSOLUTE EOSINOPHIL COUNT 0 /CUMM (0.0-0.7); ABSOLUTE LYMPH COUNT 0.8 /CUMM (1.2-3.4); ABSOLUTE MONOCYTE COUNT 0.6 /CUMM (0.10-0.60); EOSINOPHIL % 0.8 % (0-5); GRANULOCYTE % 74.4 % (42.2-75.2); HEMATOCRIT 38.3 % (42-52); MEAN CORPUSCULAR HGB 35.6 PG (27.0-31.0); MEAN CORPUSCULAR HGB CONC 34.5 G/DL (33.0-37.0); MEAN CORPUSCULAR VOLUME 103.3 FL (80.0-94.0); MEAN PLATELET VOLUME 8.5 FL (7.4-10.4); RBC DISTRIBUTION WIDTH 14.4 % (11.5-14.5)
[2017-08-17 10:01] LABS: PLATELET COUNT 94 /CUMM (130-400)
--- NOTE | 2017-08-17 10:57 | ULTRASOUND REPORT ---
EXAMINATION: US ABDOMEN LIMITED CLINICAL INFORMATION: Obstructive jaundice, transaminitis. Elevated lipase. Rule out gallstones or acute pathology. COMPARISON: Right upper quadrant ultrasound dated 12/20/2015. CT scan of the abdomen and pelvis dated 08/16/2017. TECHNIQUE: Real-time imaging of the right upper quadrant abdominal viscera. FINDINGS: PANCREAS: Largely obscured by overlying bowel gas. LIVER: Diffusely increased echogenicity of the liver is seen, consistent with hepatic steatosis. The liver is enlarged, measuring 19 cm longitudinally, unchanged. No focal lesion or intrahepatic biliary duct dilatation. GALLBLADDER: The gallbladder appears hydropic with low-level internal echoes seen, consistent with echogenic bile. This appearance is unchanged compared to the prior exam. Gallbladder measures 11.6 cm longitudinally and 5.2 cm transversely. Trace amount of pericholecystic edema is seen. No gallbladder wall thickening or pericholecystic fluid is noted. The gallbladder is physiologically distended without evidence of stones, sludge, polyps, wall thickening or pericholecystic fluid. COMMON BILE DUCT: Normal in caliber measuring 0.4 cm in diameter. RIGHT KIDNEY: Normal. No hydronephrosis. No renal calculi or focal parenchymal lesions. The kidney measures 12.2 cm in maximum dimension. FREE FLUID: None. IMPRESSION: 1. Hydropic gallbladder with thickened echogenic bile, unchanged from prior ultrasound dating back to 12/20/2015. There is now a trace amount of pericholecystic fluid seen, which is nonspecific and when correlating with the CT scan most likely corresponds to the dissection of peripancreatic fluid into the gallbladder fossa. Close clinical correlation is requested. 2. Pancreas obscured by overlying bowel gas. The CT scan demonstrated pancreatitis therefore is not appreciated on this exam. 3. Diffuse hepatic steatosis and mild hepatomegaly, similar to prior exam. 4. Otherwise unremarkable study.
--- NOTE | 2017-08-17 15:01 | Cons- Gastroenterology ---
General Information and HPI Consulting Request Date of Consult: 08/17/17 Requested By: Javier TOMLIN,Tianna Reason for Consult: Pancreatitis; abnormal ct scan showing a possible pseudocyst. Source of Information: patient, old records Exam Limitations: confusion, poor historian History of Present Illness: Mr. Hoang is a 67 year old male with a history of etoh abuse who was sent in to yesterday for abdominal pain. He notes that he has been having mid- epigastric abdominal pain radiating to his back after eating. The pain is associated with bilious vomiting, but no hematemesis. He notes the pain is similar to his prior attacks of pancreatitis. He has not had any high fevers and he reports normal bowel movements without any blood or noticable steatorhea. In the ER he was afebrile and hemodynamically stable. He had an elevated lipase of nearly [address] scan done showed evidence of pancretitis with possible development of a psueodycst at the tail/body of the pancreas. Since admission he has been kept NPO, given lactated ringers IVF at a rate of 200 cc/ hour and tramadol as needed for pain which he notes is markedly improved. He is also getting ativan for etoh withdrawal symptoms. He notes his last drink was a few days ago and he generally drinks about 2-3 pints a day of hard liquor. Allergies/Medications Allergies: Coded Allergies: NO KNOWN ALLERGIES (04/12/11) Home Med List: Atorvastatin Calcium (Lipitor) 20 MG TABLET 1 TAB PO DAILY CHOLESTEROL ( Reported) Cyanocobalamin (Vitamin B-12) 1,000 MCG TABLET 1 TAB PO DAILY ALCOHOLISM . Folic Acid 1 MG TABLET 1 TAB PO DAILY ALCOHOL . Magnesium Chloride (Slow-Mag) 71.5 MG TABLET.DR 1 TAB PO TID HYPOMAGNESEMIA . Thiamine HCl 100 MG TABLET 1 TAB PO DAILY ALCOHOL . Current Medications: Current Medications Sig/Susie Start time Last Medication Dose Route Stop Time Status Admin Cyanocobalamin/ 1 BAG ONCE ONE 08/16 1730 DC 08/16 Thiamine/Pyridoxine IV 08/17 0129 2004 Sodium Chloride 1,000 ML Folic Acid 1 MG DAILY 08/17 0900 CAN PO Folic Acid 1 MG DAILY 08/16 2045 AC 08/17 PO 1027 Heparin Sodium 5,000 UNIT Q8 08/17 0600 AC 08/17 (Porcine) SC 1354 Lactated Ringer's 1,000 ML .Q5H 08/17 2045 DC 08/17 IV 0232 Lactated Ringer's 1,000 ML .Q5H 08/17 1400 AC IV Lactated Ringer's 1,000 ML .Q5H 08/17 0800 DC 08/17 IV 08/17 1259 0813 Lactated Ringer's 1,000 ML .Q5H 08/17 0130 DC IV Lorazepam 2 MG Q4 08/17 1000 AC 08/17 PO 1355 Lorazepam 2 MG Q6 08/17 0600 DC 08/17 PO 0538 Lorazepam 2 MG Q6 08/16 2359 DC 08/16 PO 08/17 0001 2319 Lorazepam 0 .STK-MED ONE 08/16 1921 DC .ROUTE Lorazepam 2 MG Q2P PRN 08/16 1615 AC 08/17 IV 0424 Lorazepam 1 MG Q2P PRN 08/16 1615 AC 08/17 IV 0813 Lorazepam 0 .STK-MED ONE 08/16 1604 DC .ROUTE Lorazepam 2 MG ONE ONE 08/16 1600 DC 08/16 IV 08/16 1601 1540 Lorazepam 0 .STK-MED ONE 08/16 1528 DC .ROUTE Magnesium Chloride 64 MG TID 08/17 0900 AC 08/17 PO 1208 Multivitamins 1 TAB DAILY 08/17 0900 AC 08/17 PO 1027 Multivitamins 1 TAB DAILY 08/16 2045 DC 08/16 PO 2319 Ondansetron HCl 4 MG Q6P PRN 08/16 2014 AC IV Potassium Chloride 40 MEQ 1130 08/17 1130 DC 08/17 PO 08/17 1131 1208 Promethazine HCl 25 MG ONCE ONE 08/16 1500 DC 08/16 IV 08/16 1501 1453 Thiamine HCl 100 MG DAILY 08/17 0900 DC PO Thiamine HCl 500 MG TID 08/16 2100 CAN IV 08/19 2035 Thiamine HCl 500 MG TID 08/16 2100 AC 08/17 Dextrose/Water 250 ML IV 08/19 1459 1354 Thiamine HCl 100 MG TID 08/16 2030 DC PO Tramadol HCl 50 MG Q6P PRN 08/16 2100 AC PO Past History Travel History Traveled to [place] past 21 day No Medical History Neurological: 12/19/2015: FALL EENT: 12/19/2015: FXD NOSE POST FALL Cardiovascular: hypertension, hyperlipidemia Respiratory: NONE Gastrointestinal: GERD, hiatal hernia, TG/EtOH PANCREATITIS DIVERTICULOSIS COLI COLON TVA/TA HP-NEGATIVE GASTRITIS BENIGN DISTAL ESOPHAGEAL STRICTURE DISTAL ESOPHAGEAL DIVERTICULUM ESOPHAGEAL TERTIARY CONTRACTIONS Hepatic: FATTY LIVER/EtOH ABUSE Renal: NONE Musculoskeletal: falls Psychiatric: alcohol dependence Endocrine: NONE Blood Disorders: anemia (MACROCYTIC), pancytopenia (PROB EtOH RELATED) Cancer(s): NONE RESTORATIVE AIDE/Reproductive: NONE Surgical History Surgical History: unobtainable Family History Relations & Conditions If Any: MOTHER FH: hyperlipidemia TIAs FATHER, , Age 79; Cause: OBS (organic brain syndrome). BROTHER Psychosocial History Where Do You Live? Home Who Do You Live With? spouse Services at Home: None Primary Language: Libyan Smoking Status: Unknown If Ever Smoked Living Will? unknown Power of Warm In/HCP? unknown Functional Ability ADLs Independent: dressing, eating, toileting, bathing. Ambulation: independent IADLs Independent: shopping, housework, finances, food prep, telephone, transportation , medication admin. Review of Systems Review of Systems: Due to some confusion, lethargy and etoh withdrawal a full 12 point review of systems was not able to obtained. Exam & Diagnostic Data Vital Signs and I&O Vital Signs Date Time Temp Pulse Resp B/P B/P Pulse O2 O2 Flow FiO2 Mean Ox Delivery Rate 08/17 1426 98.5 116 20 110/60 92 Room Air 08/17 1142 99.3 115 18 110/80 94 Room Air 08/17 0722 100.0 116 20 108/70 95 Room Air 08/16 2236 99.5 113 20 139/94 97 Room Air 08/17 2055 97.7 112 20 132/90 94 Room Air 08/16 2034 112 16 138/89 95 Room Air 08/16 1857 98.4 109 16 132/90 08/16 1855 98.4 109 16 132/90 96 Room Air 08/16 1722 97.8 117 16 143/87 08/16 1710 97.8 117 16 143/87 96 Room Air 08/16 1605 97.6 101 16 132/92 08/16 1602 97.6 101 16 132/92 96 Room Air Intake & Output 08/17 1600 08/17 0400 08/16 1600 08/16 0400 08/15 1600 08/15 0400 Intake Total 3990 200 Output Total 500 Balance 3490 200 Intake, IV 3750 200 Intake, Oral 240 Number 0 Bowel Movements Output, Urine 500 Patient 164 lb Weight Weight Bed scale Measurement Method Physical Exam General Appearance: well developed/nourished, no apparent distress, comfortable, lethargic Head: atraumatic, normal appearance Eyes: Bilateral: normal appearance. Ears, Nose, Throat: normal pharynx, normal ENT inspection, hearing grossly normal Neck: normal inspection, supple, full range of motion Respiratory: normal breath sounds, chest non-tender, no respiratory distress, quiet respiration Cardiovascular: regular rate/rhythm Gastrointestinal: normal bowel sounds, soft, non-tender, no organomegaly Back: normal inspection, normal range of motion Extremities: normal inspection, no edema Neurologic/Psych: no motor/sensory deficits, awake Skin: intact, normal color, warm/dry Results Pertinent Lab Results: Laboratory Tests 08/17 08/16 0735 1205 Chemistry Sodium (137 - 145 mmol/L) 138 136 L Potassium (3.5 - 5.1 mmol/L) 3.0 L 4.0 Chloride (98 - 107 mmol/L) 103 95 L Carbon Dioxide (22 - 30 mmol/L) 24 27 Anion Gap (5 - 16) 11 14 BUN (9 - 20 mg/dL) 10 19 Creatinine (0.7 - 1.2 mg/dL) 0.7 1.6 H Estimated GFR (>60 ml/min) > 60 43 L BUN/Creatinine Ratio (7 - 25 %) 14.3 11.9 Glucose (65 - 99 mg/dL) 166 H Calcium (8.4 - 10.2 mg/dL) 8.9 Phosphorus (2.5 - 4.5 mg/dL) 2.7 Magnesium (1.6 - 2.3 mg/dL) 1.3 L 1.3 L Total Bilirubin (0.2 - 1.3 mg/dL) 1.7 H 2.4 H Direct Bilirubin (< 0.4 mg/dL) 0.7 H 0.9 H AST (17 - 59 U/L) 63 H 125 H ALT (21 - 72 U/L) 44 60 Alkaline Phosphatase (< 127 U/L) 51 66 Lactate Dehydrogenase (313 - 618 U/L) 710 H Troponin I (<0.11 ng/ml) < 0.01 C-Reactive Prot, Quant (<1.0 mg/dL) > 9.0 H 8.2 H Total Protein (6.3 - 8.2 g/dL) 5.8 L 7.6 Albumin (3.5 - 5.0 g/dL) 3.1 L 4.8 Globulin (1.9 - 4.2 gm/dL) 2.8 Albumin/Globulin Ratio (1.1 - 2.2 %) 1.7 Amylase (30 - 110 U/L) 541 H Lipase (23 - 300 U/L) 5921 H Hematology CBC w Diff NO MAN DIFF REQ NO MAN DIFF REQ WBC (4.8 - 10.8 /CUMM) 5.7 7.7 RBC (4.70 - 6.10 /CUMM) 3.70 L 4.19 L Hgb (14.0 - 18.0 G/DL) 13.2 L 14.9 Hct (42 - 52 %) 38.3 L 42.6 MCV (80.0 - 94.0 FL) 103.3 H 101.6 H MCH (27.0 - 31.0 PG) 35.6 H 35.5 H MCHC (33.0 - 37.0 G/DL) 34.5 34.9 RDW (11.5 - 14.5 %) 14.4 14.3 Plt Count (130 - 400 /CUMM) 94 L 134 MPV (7.4 - 10.4 FL) 8.5 8.0 Gran % (42.2 - 75.2 %) 74.4 79.8 H Lymphocytes % (20.5 - 51.1 %) 14.6 L 10.7 L Monocytes % (1.7 - 9.3 %) 9.9 H 8.4 Eosinophils % (0 - 5 %) 0.8 0.5 Basophils % (0.0 - 2.0 %) 0.3 0.6 Absolute Granulocytes (1.4 - 6.5 /CUMM) 4.2 6.1 Absolute Lymphocytes (1.2 - 3.4 /CUMM) 0.8 L 0.8 L Absolute Monocytes (0.10 - 0.60 /CUMM) 0.6 0.6 Absolute Eosinophils (0.0 - 0.7 /CUMM) 0 0 Absolute Basophils (0.0 - 0.2 /CUMM) 0 0 Toxicology Serum Alcohol (<10 MG/DL) < 10.0 04/23 1200 Toxicology Serum Alcohol Cancelled Imaging/Other Studies: SERVICE DATE: 08/17/17-599 EXAM TYPE: US - US-LIMITED ABDOMEN EXAMINATION: US ABDOMEN LIMITED CLINICAL INFORMATION: Obstructive jaundice, transaminitis. Elevated lipase. Rule out gallstones or acute pathology. COMPARISON: Right upper quadrant ultrasound dated 12/20/2015. CT scan of the abdomen and pelvis dated 08/16/2017. TECHNIQUE: Real-time imaging of the right upper quadrant abdominal viscera. FINDINGS: PANCREAS: Largely obscured by overlying bowel gas. LIVER: Diffusely increased echogenicity of the liver is seen, consistent with hepatic steatosis. The liver is enlarged, measuring 19 cm longitudinally, unchanged. No focal lesion or intrahepatic biliary duct dilatation. GALLBLADDER: The gallbladder appears hydropic with low-level internal echoes seen, consistent with echogenic bile. This appearance is unchanged compared to the prior exam. Gallbladder measures 11.6 cm longitudinally and 5.2 cm transversely. Trace amount of pericholecystic edema is seen. No gallbladder wall thickening or pericholecystic fluid is noted. The gallbladder is physiologically distended without evidence of stones, sludge, polyps, wall thickening or pericholecystic fluid. COMMON BILE DUCT: Normal in caliber measuring 0.4 cm in diameter. RIGHT KIDNEY: Normal. No hydronephrosis. No renal calculi or focal parenchymal lesions. The kidney measures 12.2 cm in maximum dimension. FREE FLUID: None. IMPRESSION: 1. Hydropic gallbladder with thickened echogenic bile, unchanged from prior ultrasound dating back to 12/20/2015. There is now a trace amount of pericholecystic fluid seen, which is nonspecific and when correlating with the CT scan most likely corresponds to the dissection of peripancreatic fluid into the gallbladder fossa. Close clinical correlation is requested. 2. Pancreas obscured by overlying bowel gas. The CT scan demonstrated pancreatitis therefore is not appreciated on this exam. 3. Diffuse hepatic steatosis and mild hepatomegaly, similar to prior exam. 4. Otherwise unremarkable study. SERVICE DATE: 08/16/17144 EXAM TYPE: CAT - CT ABD & PELVIS W/O IV CONTRAS EXAMINATION: CT ABDOMEN AND PELVIS WITHOUT CONTRAST CLINICAL INFORMATION: Pancreatitis. COMPARISON: CT abdomen and pelvis 03/02/2014. TECHNIQUE: Multidetector volumetric imaging was performed from the superior aspect of the liver through the pubic symphysis. Sagittal and coronal reformatted images were obtained on the technologist's workstation. DLP: 445.59 mGy-cm FINDINGS: LUNG BASES: The visualized lung bases are unremarkable. There are coronary artery calcifications present. There is no pericardial effusion. LIVER, GALLBLADDER, AND BILIARY TREE: Low attenuation of liver parenchyma due to fatty change. No focal liver lesion. No intrahepatic bile duct dilatation. The gallbladder is unremarkable with no evidence of radiopaque gallstones, gallbladder wall thickening, or obvious pericholecystic inflammatory changes. PANCREAS: There is edema around the pancreatic body and tail with fluid extending along the anterior pararenal fascia and around the left upper quadrant in the paracolic gutter and adjacent to the spleen. There is no pseudocyst. The pancreas is of normal size. There is no pancreatic duct dilatation. There is a 1.7 x 1.3 cm nodule at the anterior lateral surface of the body and tail of the pancreas, axial image 236 (3), coronal image 41. This has a density measurement of 41 Hounsfield units similar to the adjacent pancreatic tissue. Has a thin hyperdense rim. This was not present on the CAT scan of 03/02/2014. Could be small pseudocyst. No pancreatic calcification. No pancreatic duct dilatation. SPLEEN: Unremarkable. ADRENAL GLANDS: Unremarkable. KIDNEYS AND URETERS: The kidneys are normal in size, shape, and attenuation. No hydronephrosis, hydroureter, or calculi seen. No perinephric stranding. BLADDER: Unremarkable. GASTROINTESTINAL TRACT: There are a few diverticula of the left colon and sigmoid, but no diverticulitis. There is no acute change of the bowel. No bowel obstruction. No bowel wall thickening or edema. The appendix is not seen. The small bowel loops are unremarkable. There is a small hiatal hernia. ABDOMINAL WALL: No significant hernia is appreciated. LYMPH NODES: Normal. VASCULAR: There are vascular wall calcifications of the aorta without aneurysm. PELVIC VISCERA: Prostate measures 5.3 cm transverse. OSSEOUS STRUCTURES: Degenerative spondylosis spine with multilevel endplate spurring of the lumbar and lower thoracic vertebrae. There is a minimal anterior listhesis of L4 and L5 due to facet joint degenerative change. There is no spondylolysis. IMPRESSION: 1. Edema around the body and tail of pancreas consistent with pancreatitis. 2. Small nodule at the surface of the body/tail of the pancreas, new since the CAT scan of 02/27/2014. Possible small developing pseudocyst. This can be further assessed with MRI. 3. Mild diverticulosis of left colon without diverticulitis. 4. Diffuse fatty change of liver. Assessment/Plan Assessment/Recommendations: Assessment: Mr. Hoang is a 67 year old male with a history of etoh abuse who presents with etoh pancreatitis which he is currently doing reasonably well with as he currenty is without any significant abdominal pain on PE and his decreasing BUN is a good prognostic indicator and evidence that he has been adequately hydrated. He had mildly increased LFTs on admission which is likely secondary to etoh from which he appears to be withdrawing fom now. He was also noted to possibly be devloping a pseudocyst on a ct scan and while this is possible it is too early in his course at this time to have a pseudocyst develop albeit he could of developed one from prior attacks. It may be reasonable to repeat a ct scan in a few weeks if he remains symptomatic to see if this has evolved into a more mature pseudocyst that may benefit from drainage, but nothing acutely needs to be done about it at this time and if his symptms resolve he doesn't even necessarily require repeat imaging. Recommendations: 1. Continue hydration with 200cc of lactated ringers for another 12-24 hours and then reassess volume status 2. As he is now pain free would recommend advancing diet as tolerted 3. Analgesia as needed 4. Benzodiazepenes as needed for etoh withdrawal symptoms 5. Social service consult for etoh abuse 6. If symptoms persist consideration may ultmately be given for repeat imaging in a few weeks to see if a more mature pseudocyst has developed which may benefit from drainage. I will sign off at this time and ask that GI be reconsulted for any persistent symptoms or any other GI issues which may arise on this hospitalization Problem List: 1. ACUTE PANCREATITIS 2. Alcoholism 3. Delirium tremens 4. Fatty liver Copies To: Alvino TOMLIN,Shayne Villalba. Consult Acknowledgment - Thank you for your consult request.
[2017-08-18 06:48] VITALS: BP 128/72
--- NOTE | 2017-08-18 07:25 | PN- Housestaff ---
[facility]25: Subjective Follow-up For: Acute pancreatitis Alcohol withdrawal MONALISA (resolved) Fever Subjective: No overnight events. Patient remained febrile. Seen and examined this morning. He denied any chest pain, shortness of breath, palpitation, nausea, vomiting, abdominal pain and dysuria. He reported having chills. Patient is on clear liquid diet and is tolerating it. Review of Systems Constitutional: Reports: chills. Denies: fever. EENTM: Reports: no symptoms. Cardiovascular: Denies: chest pain, orthopena, palpitations. Respiratory: Denies: cough, short of breath, sputum production. Gastrointestinal: Denies: abdominal pain, constipation, diarrhea, nausea. Genitourinary: Reports: no symptoms. Musculoskeletal: Reports: no symptoms. Neurological/Psychological: Reports: no symptoms. Objective Last 24 Hrs of Vital Signs/I&O Vital Signs Date Time Temp Pulse Resp B/P B/P Pulse O2 O2 Flow FiO2 Mean Ox Delivery Rate 08/18 0648 99.6 111 20 128/72 91 08/17 2200 99.9 101 16 116/97 08/17 2138 99.9 101 18 116/78 93 Room Air 08/17 2000 101.0 08/17 1915 101.0 08/17 1818 101.2 08/17 1800 101.2 116 16 112/72 08/17 1750 101.2 116 16 112/72 93 Room Air 08/17 1600 100.7 111 18 110/58 08/17 1600 100.7 111 18 110/58 92 Room Air 08/17 1426 98.5 116 20 110/60 92 Room Air 08/17 1142 99.3 115 18 110/80 94 Room Air Intake & Output 08/18 0800 08/18 0000 08/17 1600 Intake Total 1960 2370 1840 Output Total 600 500 500 Balance 1360 1870 1340 Intake, IV 1600 1570 1600 Intake, Oral 360 800 240 Number 1 0 Bowel Movements Output, Urine 600 500 500 Physical Exam General Appearance: Alert, Oriented X3, Cooperative Skin Temp/Moisture Exam: Warm/Dry Sepsis Skin Exam (color): Normal for Ethnicity HEENT: Atraumatic, PERRLA, EOMI Neck: Supple Cardiovascular: Normal S1, Normal S2 Lungs: Clear to Auscultation Abdomen: Soft, No Tenderness Neurological: Normal Speech, Strength at 5/5 X4 Ext, Normal Tone Extremities: No Edema Assessment/Plan Assessment: 67-year-old gentleman with a past medical history significant for hypertension, hyperlipidemia, elevated triglycerides, multiple recurrent admission to [facility] for etoh induceced pancreatitis (last one in november 2015),GI workup at [place] including EUS, presents for evaluation of abdominal pain. We are follow the patient on general medicine floor following problems; Acute on chronic pancreatitis: -Possibly alcohol induced. -Continue clear liquid diet. Advance to full liquid diet without toast. -Ringer lactate at the rate of 100mL per hour -IV Zofran as needed -GI recommendations appreciated Fever: -Possibly due to aspiration or inflamatory process in pancrease. -F/u BLOOD CULTURES -Chest x-ray for aspiration pneumonia as he has difficulty in swallowing in past. -Off antibiotics for now. -Swallow eval is normal Alcohol withdrawal: -Follow CIWA protocol -Ativan 1.5 mg every 4 hourly -High-dose thiamine to prevent the Wernicke's encephalopathy -Vitamin supplementation -Watch out for DTs -Low threshold to transfer to ICU MONALISA:(resolved) -Probably due to dehydration -Avoid nephrotoxic medications -Monitor input and output DVT prophylaxis: Mechanical and s/c heparin CODE STATUS: Full code Problem List: 1. Alcohol withdrawal 2. MONALISA (acute kidney injury) 3. Pancreatitis Pain Ratin Pain Location: none Pain Goal: Remain pain free Pain Plan: pain pathway Tomorrow's Labs & Rationales: bep/mag Javier TOMLIN,[facility] 08/18/17 1206: Attending MD Review Statement Attending Statement Attending MD Statement: examined this patient, discuss w/resident/PA/GLOBAL COMPENSATION MANAGER, agreed w/resident/PA/GLOBAL COMPENSATION MANAGER, reviewed EMR data (avail), discussed with nursing, discussed with case mgmt, amended to note Attending Assessment/Plan: Patient seen and examined. He was febrile yesterday with T-max of 101. He was also febrile earlier this morning with temperature of 100.9. He is hemodynamically stable. He CIWA score is improving. He is alert and conversant appropriately. He is oriented 3. He admits to mild chronic cough but denies any symptoms currently. Denies chest pain or palpitations. He does admit to difficulty swallowing on and off. Reports that these symptoms have been chronic. He admits to having a swallow evaluation in the past. He also has a history of GERD and esophageal diverticulum. Last EGD was February 2016 that revealed an incidental asymptomatic widely patent intermittent lower esophageal ring. Biopsy results were negative for malignancy. On examination he is not in any respiratory distress. He is not requiring oxygen supplementation. He has adequate entry bilaterally with no added sounds. Abdomen is soft and nontender with normal bowel sounds. He has no skin rash. Laboratory data shows no leukocytosis. Chest x-ray shows stable nonspecific low lung volumes bilaterally. He has nonspecific bibasilar airspace disease that may represent infiltrate atelectasis or a combination. Recommendations: -His alcohol withdrawal symptoms are improving. Begin to taper his benzodiazepine therapy. -His history raises concern for aspiration as a cause of his fever. He however has no clear clinical evidence of an infectious process at present. He is not producing any sputum. Will hold off antibiotic therapy for now. Obtain swallow evaluation. Maintain aspiration precautions at all times. -Mobilize patient as tolerated. -Supplement potassium orally. -Hemoglobin level is trending downwards. Likely dilutional. After swallow evaluation discontinue IV fluids.
[2017-08-18 08:58] LABS: ABSOLUTE BASOPHIL COUNT 0 /CUMM (0.0-0.2); ABSOLUTE EOSINOPHIL COUNT 0 /CUMM (0.0-0.7); ABSOLUTE GRANULOCYTE CT 3.6 /CUMM (1.4-6.5); ABSOLUTE LYMPH COUNT 0.9 /CUMM (1.2-3.4); ABSOLUTE MONOCYTE COUNT 0.6 /CUMM (0.10-0.60); BASOPHIL % 0.3 % (0.0-2.0); EOSINOPHIL % 0.9 % (0-5); GRANULOCYTE % 70.2 % (42.2-75.2); MEAN CORPUSCULAR HGB 36.5 PG (27.0-31.0); MEAN CORPUSCULAR HGB CONC 35.5 G/DL (33.0-37.0); MEAN CORPUSCULAR VOLUME 102.9 FL (80.0-94.0); MEAN PLATELET VOLUME 8.4 FL (7.4-10.4); PLATELET COUNT 101 /CUMM (130-400); RBC DISTRIBUTION WIDTH 14.3 % (11.5-14.5); RED BLOOD CELL CT 3.19 /CUMM (4.70-6.10); WHITE BLOOD CELL COUNT 5.2 /CUMM (4.8-10.8)
[2017-08-18 09:32] LABS: HEMATOCRIT 32.8 % (42-52)
--- NOTE | 2017-08-18 11:33 | RADIOLOGY REPORT ---
EXAMINATION: XR PORTABLE CHEST CLINICAL INFORMATION: Shortness of breath. COMPARISON: Chest done on 12/20/2015. TECHNIQUE: Portable frontal view of the chest was obtained. FINDINGS: Low lung volume is present bilaterally. Nonspecific bibasilar airspace disease is noted, new since prior study, may represent hypoventilatory, atelectatic changes versus infiltrate versus combination thereof. The cardiomediastinal silhouette is within normal limits. There is no pleural effusion present. The visualized upper abdomen shows nonspecific prominent bowel loops. IMPRESSION: 1. Persistent stable nonspecific low lung volumes bilaterally, unchanged since 12/20/2015. 2. Nonspecific bibasilar airspace disease, new since prior study, may represent infiltrate, atelectasis, combination thereof. 3. Nonspecific prominent bowel loops within the visualized abdomen.
[2017-08-18 14:29] VITALS: BP 130/74
[2017-08-18 22:34] VITALS: BP 134/88
--- NOTE | 2017-08-18 23:09 | Discharge Summary ---
Visit Information Visit Dates Admission Date: 08/16/17 Discharge Date: 08/20/17 Hospital Course Course Attending Physician: Tianna Herrera MD Primary Care Physician: Shayne De Oliveira MD Hospital Course: 67 YO M with a PMH significant for hypertension, hyperlipidemia, elevated triglycerides, multiple recurrent admission to [facility] for etoh induceced pancreatitis (last one in november 2015),GI workup at [place] including EUS , presents for evaluation of abdominal pain. ED course: Vitals: Temperature 97.5, pulse 72, respiration rate 16, blood pressure 92/52, oxygen saturation 97% on room air Labs: WBC count 7.7, hemoglobin 14.9, hematocrit 42.6, platelet count 134, sodium 136, potassium 4.0, BUN 19, creatinine 1.6, glucose 166, BUNs/creatinine ratio to 1.9, AST 125, ALT 60, troponin less than 0.01, amylase 541, lipase 5921 Acute pancreatitis: Patient presented with abdominal pain. His lipase was high and on imaging study he was found to have pancreatitis with small developing pseudocyst pancreas. Patient was kept nothing by mouth and started on Ringer lactate. His input and output was monitored. He was given IV Zofran as needed for nausea and vomiting. GI consult was obtained and recommendations were followed. Patient's imaging studies were negative for any gallstone. Possibly patient developed pancreatitis due to alcoholism. Patient's Condition Improved and he was Started on Clear Liquids and his diet was advanced. Patient tolerated regular diet and he was discharged home. Patient was advised to follow GI as outpatient to repeat imaging studies for pseudocyst pancreas. Alcohol withdrawal: Patient had history of alcohol abuse. He had alcohol withdrawal symptoms as her reported that he was hallucinating. Patient was kept on CIWA protocol and scheduled ATIVAN 2 milligrams and one every 6 hourly. Later on his ativan changed to 2 mg every 4 hourly as his CIWA score was high and he was low threshold to be transferred to ICU. Patient was given thiamine, vitamin folic acid and vitamin supplementation. During hospital course his potassium and magnesium were low possibly due to alcoholism and will repleted potassium and magnesium. Later on patient's condition improved and he was given ativan taper. Before being discharged patient was out of bed and walking around without any complaint. She was instructed to follow [facility] for his alcohol dependency and he was advised to abstain from drinking. Patient agreed to follow [facility] as he was already enrolled in it ordered for the patient. Fever: During hospital stay patient had a spike of temperature probably due to atelectasis or pancreatic inflammatory process. Blood cultures were obtained that remained negative and his x-ray chest rule out pneumonia. His swallow evaluation was treated for any aspiration. He was kept on regular diet without any modification. Patient was kept off antibiotics. Patient was advised to use incentive spirometry for his breathing exercises. MONALISA: Patient had MONALISA on presentation. Possibly due to dehydration. IV hydration was done. His renal function was monitored every day with input and output. Nephrotoxic medications were avoided. Later on his kidney functions improved. H/O hyperlipidemia: We continued his atorvastatin. H/O HTN: His blood pressure remained in normal limit in hospital stay and he was not on any antihypertension medications. DVT prophylaxis: Mechanical and s/c heparin CODE STATUS: Full code Allergies: Coded Allergies: NO KNOWN ALLERGIES (04/12/11) Pertinent Lab Results: Abdomen/pelvic CT scan on 08/16/2017; IMPRESSION: 1. Edema around the body and tail of pancreas consistent with pancreatitis. 2. Small nodule at the surface of the body/tail of the pancreas, new since the CAT scan of 02/27/2014. Possible small developing pseudocyst. This can be further assessed with MRI. 3. Mild diverticulosis of left colon without diverticulitis. 4. Diffuse fatty change of liver. Abdominal ultrasound on 08/17/2017: IMPRESSION: 1. Hydropic gallbladder with thickened echogenic bile, unchanged from prior ultrasound dating back to 12/20/2015. There is now a trace amount of pericholecystic fluid seen, which is nonspecific and when correlating with the CT scan most likely corresponds to the dissection of peripancreatic fluid into the gallbladder fossa. Close clinical correlation is requested. 2. Pancreas obscured by overlying bowel gas. The CT scan demonstrated pancreatitis therefore is not appreciated on this exam. 3. Diffuse hepatic steatosis and mild hepatomegaly, similar to prior exam. 4. Otherwise unremarkable study. Chest x-ray on 08/18/17: IMPRESSION: 1. Persistent stable nonspecific low lung volumes bilaterally, unchanged since 12/20/2015. 2. Nonspecific bibasilar airspace disease, new since prior study, may represent infiltrate, atelectasis, combination thereof. 3. Nonspecific prominent bowel loops within the visualized abdomen. WBC count 5.2, hemoglobin 11.6, hematocrit 32.8, platelet count 101, sodium 139, potassium 3.7, BUN 7, creatinine 0.7, magnesium 1.5 Disposition Summary Disposition Principal Diagnosis: Acute alcoholic pancreatitis Alcohol withdrawal MONALISA Additional Diagnosis: History of hyperlipidemia Discharge Disposition: home or self care Discharge Instructions General Discharge Information Code Status: Full Code Patient's Diet: Regular diet Patient's Activity: Self limited Follow-Up Instructions/Appts: Follow up with your pcp in one week. Follow up with gastroenterology in one week and discuss about follow up for psudocyst pancrease. Follow-up with outpatient [facility] for alcohol dependency. Medications at Discharge Discharge Medications: Continue taking these medications: Atorvastatin Calcium (Lipitor) 20 MG TABLET 1 Tablet ORAL DAILY Comments: NOT GIVEN IN HOSPITAL Start taking the following new medications: Cyanocobalamin (Vitamin B-12) 1,000 MCG TABLET 1 Tablet ORAL DAILY Qty = 30 No Refills Instructions: . Comments: NOT GIVEN IN HOSPITAL Folic Acid (Folic Acid) 1 MG TABLET 1 Tablet ORAL DAILY Qty = 30 No Refills Instructions: . Comments: LAST GIVEN 08/20/17 @ 1000 Thiamine HCl (Thiamine HCl) 100 MG TABLET 1 Tablet ORAL DAILY Qty = 30 No Refills Instructions: . Comments: NOT GIVEN IN HOSPITAL Magnesium Chloride (Slow-Mag) 71.5 MG TABLET.DR 1 Tablet ORAL THREE TIMES DAILY Qty = 15 No Refills Instructions: . Comments: LAST GIVEN 08/10/17 @ 1600 Copies To: Alvino TOMLIN,Shayne Costa MD,Vu Dickerson MD Review Statement Documenting Attending: Tianna Herrera MD Other Findings: Discharged in stale condition
[2017-08-19 05:41] VITALS: BP 140/76
--- NOTE | 2017-08-19 06:59 | PN- Housestaff ---
[place] 08/19/17 0659: Subjective Follow-up For: Acute pancreatitis (resolving) Alcohol withdrawal Subjective: No overnight events. Patient remained afebrile. Seen and examined this morning. He denied any chest pain, short of breath, nausea, vomiting, chills, fever, abdominal pain dysuria. He is tolerating full liquid diet. We will get physical therapy evaluation today. Review of Systems Constitutional: Denies: chills, fever. EENTM: Reports: no symptoms. Cardiovascular: Denies: chest pain, palpitations. Respiratory: Denies: cough, short of breath. Gastrointestinal: Denies: abdominal pain, constipation, melena, nausea. Genitourinary: Reports: no symptoms. Neurological/Psychological: Reports: no symptoms. Objective Last 24 Hrs of Vital Signs/I&O Vital Signs Date Time Temp Pulse Resp B/P B/P Pulse O2 O2 Flow FiO2 Mean Ox Delivery Rate 08/19 0541 98.8 92 20 140/76 93 Room Air 08/18 2234 99.9 99 20 134/88 93 Room Air 08/18 2122 Room Air 08/18 2000 98 08/18 1429 99.2 108 20 130/74 93 Room Air Intake & Output 08/19 1600 08/19 0800 08/19 0000 Intake Total 240 730 Output Total 450 650 Balance -210 80 Intake, IV 0 250 Intake, Oral 240 480 Number 0 Bowel Movements Output, Urine 450 650 Physical Exam General Appearance: Alert, Oriented X3, Cooperative Skin: No Rashes Skin Temp/Moisture Exam: Warm/Dry Sepsis Skin Exam (color): Normal for Ethnicity HEENT: Atraumatic, PERRLA, EOMI Neck: Supple Cardiovascular: Normal S1, Normal S2 Lungs: Clear to Auscultation Abdomen: Soft, No Tenderness Neurological: Normal Speech, Normal Tone Assessment/Plan Assessment: 67-year-old gentleman with a past medical history significant for hypertension, hyperlipidemia, elevated triglycerides, multiple recurrent admission to [facility] for etoh induceced pancreatitis (last one in november 2015),GI workup at [facility] including EUS, presents for evaluation of abdominal pain. We are follow the patient on general medicine floor following problems; Acute on chronic pancreatitis: -Possibly alcohol induced. -Continue full liquid diet. -IV Zofran as needed -Patient will follow GI as outpatient after discharge. Fever: -F/u BLOOD CULTURES -Chest x-ray normal no evidence of pneumonia. -Off antibiotics for now. -Swallow eval is normal Alcohol withdrawal: -Follow CIWA protocol -Ativan 1 mg TID. -Continue thiamine supplementation. -Vitamin supplementation -Watch out for DTs MONALISA:(resolved) -Probably due to dehydration -Avoid nephrotoxic medications -Monitor input and output DVT prophylaxis: Mechanical and s/c heparin CODE STATUS: Full code Problem List: 1. Alcohol withdrawal 2. Alcoholic hepatitis Pain Ratin Pain Location: none Pain Goal: Remain pain free Pain Plan: pain pathway Tomorrow's Labs & Rationales: nba Herrera MD,Jaimeiglesiaalberto 08/19/17 1242: Attending MD Review Statement Attending Statement Attending MD Statement: examined this patient, discuss w/resident/PA/[employer]ADER, agreed w/resident/PA/[employer]ADER, reviewed EMR data (avail), discussed with nursing, discussed with case mgmt, amended to note Attending Assessment/Plan: Patient seen and examined. Resting comfortably and not in any acute distress. He CIWA is improving. He is not requiring escalating doses of Ativan. This morning he is alert oriented 3 and conversant appropriately. Nursing staff reports that he is very unsteady on his feet requiring significant assistance. He remains afebrile. He is using his incentive spirometry. Blood cultures currently negative. Recommendations: -We will continue to taper down his Ativan therapy. -Physical therapy to mobilize patient. -Anticipated discharge in 48 hoursafter weaning off benzodiazepine therapy and patient's ambulatory status improves.
[2017-08-19 13:49] VITALS: BP 137/77
--- NOTE | 2017-08-19 16:36 | Patient Discharge Instructions ---
Discharge Instructions General Discharge Information You were seen/treated for: Acute alcoholic pancreatitis Alcohol withdrawal Watch for these problems: Chest pain, palpitation, nausea, vomiting, abdominal pain, fever, chills and anxiety. If you experience any of these symptoms come to ED or call to pcp. Special Instructions: Follow up with your pcp in one week. Follow up with gastroenterology in one week and discuss about follow up for psudocyst pancrease. Follow[facility] with outpatient [facility] for alcohol dependency. Diet Recommended Diet: Regular Activity Activity Self Limited: Yes Acute Coronary Syndrome Inclusion Criteria At DC or during hospital stay patient has or had the following: ACS DIAGNOSIS No Discharge Core Measures Meds if any: Prescribed or Continued at Discharge Meds if any: NOT Prescribed or Continued at Discharge Congestive Heart Failure Inclusion Criteria At DC or during hospital stay patient has or had the following: CHF DIAGNOSIS No Discharge Core Measures Meds if any: Prescribed or Continued at Discharge Meds if any: NOT Prescribed or Continued at Discharge Cerebrovascular accident Inclusion Criteria At DC or during hospital stay patient has or had the following: CVA/TIA Diagnosis No Discharge Core Measures Meds if any: Prescribed or Continued at Discharge Meds if any: NOT Prescribed or Continued at Discharge Venous thromboembolism Inclusion Criteria VTE Diagnosis No VTE Type NONE VTE Confirmed by (Test) NONE Discharge Core Measures - Per Current guidelines, there needs to be overlap - treatment for the first 5 days of Warfarin therapy. - If discharged on Warfarin prior to 5 days of - overlap therapy, the patient will need to be - assessed for post discharge needs including - *Post discharge parental anticoagulation - *Warfarin and/or parental anticoagulation education - *Follow up date to check INR post discharge At least 5 days overlap therapy as Inpatient No Meds if any: Prescribed or Continued at Discharge Note: Overlap Therapy is Warfarin and Anticoagulant Meds if any: NOT Prescribed or Continued at Discharge
[2017-08-19 21:22] VITALS: BP 134/80
[2017-08-20 06:36] VITALS: BP 140/56
--- NOTE | 2017-08-20 07:17 | PN- Housestaff ---
[place] 08/20/17 0716: Subjective Follow-up For: Acute pancreatitis (resolving) Alcohol withdrawal Subjective: No over night events. Patient remained afebrile. seen and examined this morning. Patient denied any chest pain, short of a, nausea, vomiting, chills and fever. He reported that he couldn't sleep last night because of the disturbance. Patient is tolerating full liquid diet with toast without abdominal pain or nausea. We will advance diet to regular today. If he tolerates then we'll plan to discharge him later on the day. His CIWA score remained zero. Review of Systems Constitutional: Denies: chills, fever. EENTM: Reports: no symptoms. Cardiovascular: Denies: chest pain, palpitations. Respiratory: Denies: cough, short of breath, sputum production. Gastrointestinal: Denies: abdominal pain, constipation, diarrhea, nausea. Genitourinary: Reports: no symptoms. Musculoskeletal: Reports: no symptoms. Neurological/Psychological: Reports: no symptoms. Objective Last 24 Hrs of Vital Signs/I&O Vital Signs Date Time Temp Pulse Resp B/P B/P Pulse O2 O2 Flow FiO2 Mean Ox Delivery Rate 08/20 0636 99.1 95 20 140/56 93 Room Air 08/19 2122 98.9 107 18 134/80 94 Room Air 08/19 1442 105 08/19 1349 99.8 109 19 137/77 93 Room Air Intake & Output 08/20 0800 08/20 0000 08/19 1600 Intake Total 240 1200 900 Output Total 300 1450 400 Balance -60 -250 500 Intake, IV 500 Intake, Oral 240 1200 400 Number 1 0 Bowel Movements Output, Urine 300 1450 400 Patient 163 lb Weight Physical Exam General Appearance: Alert, Oriented X3, Cooperative Skin: No Rashes Skin Temp/Moisture Exam: Warm/Dry Sepsis Skin Exam (color): Normal for Ethnicity HEENT: Atraumatic, PERRLA, EOMI Neck: Supple Cardiovascular: Normal S1, Normal S2 Lungs: Clear to Auscultation Abdomen: Soft, No Tenderness Neurological: Normal Speech, Strength at 5/5 X4 Ext, Normal Tone Assessment/Plan Assessment: 67-year-old gentleman with a past medical history significant for hypertension, hyperlipidemia, elevated triglycerides, multiple recurrent admission to [facility] for etoh induceced pancreatitis (last one in november 2015),GI workup at [facility] including EUS, presents for evaluation of abdominal pain. We are follow the patient for following problems: Acute pancreatitis:(resolving) -Possibly alcohol induced. -Regular diet. Patient is tolerating his diet. -IV Zofran as needed -Patient will follow GI as outpatient after discharge. He is being discharged today. Fever: -Blood cultures are negative -Chest x-ray normal no evidence of pneumonia. -Off antibiotics for now. -Swallow eval is normal Alcohol withdrawal: -CIWA score remained zero. -Ativan 1 mg once. -Continue thiamine supplementation. -Vitamin supplementation -Repleting magnesium and potassium. -Patient was instructed to follow outpatient [facility] for alcohol dependency. Patient was advised to abstain from drinking. He agred to follow-up [facility] outpatient IOP MONALISA:(resolved) -Probably due to dehydration -Avoid nephrotoxic medications History of hyperlipidemia: -Continue atorvastatin History of hypertension: -Patient is not on any medications and his blood pressure is within normal limits. DVT prophylaxis: Mechanical and s/c heparin CODE STATUS: Full code Problem List: 1. ACUTE PANCREATITIS 2. Alcohol withdrawal Pain Ratin Pain Location: none Pain Goal: Remain pain free Pain Plan: pain pathway Tomorrow's Labs & Rationales: none Javier TOMLIN,Tianna 08/20/17 1104: Attending MD Review Statement Attending Statement Attending MD Statement: examined this patient, discuss w/resident/PA/COBOL PROGRAMMER, agreed w/resident/PA/COBOL PROGRAMMER, reviewed EMR data (avail), discussed with nursing, discussed with case mgmt, amended to note Attending Assessment/Plan: Patient seen and examined. No issues overnight reported by nursing staff. Remains afebrile and hemodynamically stable. Resting comfortably and not in any acute distress. He has been evaluated by the physical therapy service and is doing much better today. He is ambulating independently. He CIWA scores have been 0. He is medically stable to be discharged home today. He has been advised to follow-up with the outpatient alcohol rehabilitation program and is willing to do this. He has remained afebrile and blood cultures are negative. He is medically stable to be discharged home today.
[2017-08-20] MEDS ORDERED: SLOW-MAG71.5 MG PO ×2 (08:49→08:55)
[2017-08-20] MEDS ORDERED: THIAMINE HCL100 M1 PO ×2 (08:51→08:55)
[2017-08-20] MEDS ORDERED: FOLIC ACID1 M1 PO ×2 (08:51→08:55)
[2017-08-20] MEDS ORDERED: VITAMIN B-121000 MC3 PO ×2 (08:51→08:55)
== END 2017-08-20 16:09 | DRG 439 ==
LOC: ERH 11:47 → 2NB 17:32 → ERHI 17:32 → ENRESERV 18:39 → ENTRNSPT 20:23 → EDTRNSPT 20:28 → EDTRNSPTSTS 20:28 → 2NB 20:37 → CMPTRNSPT 20:43 → 2NB 08-17 08:17 → ENPENDDIS 08-20 09:22 → ENTRNSPT 08-20 16:02 → EDTRNSPTSTS 08-20 16:03 → 2NB 08-20 16:09 → CMPTRNSPT 08-20 16:23
PROVIDERS: Physician Assistant Medical; Student in an Organized Health Care Education/Training Program
DX: K85.20 Alcohol induced acute pancreatitis without necrosis or infection (principal); D61.818 Other pancytopenia; F10.231 Alcohol dependence with withdrawal delirium; N17.9 Acute kidney failure, unspecified; K86.3 Pseudocyst of pancreas; K70.0 Alcoholic fatty liver; R50.9 Fever, unspecified; K21.9 Gastro-esophageal reflux disease without esophagitis; K44.9 Diaphragmatic hernia without obstruction or gangrene; E86.0 Dehydration; K86.0 Alcohol-induced chronic pancreatitis; E80.6 Other disorders of bilirubin metabolism; K22.5 Diverticulum of esophagus, acquired; E78.5 Hyperlipidemia, unspecified; Z87.81 Personal history of (healed) traumatic fracture; I10 Essential (primary) hypertension
CPT/HCPCS: 2NSBP; 36415; 36592; 71045; 74176; 81001; 82436; 87040; 96374; 96375; 97110-GO; 97116-GO; 97161-GP; 99291; G0480; J1644; J2405; J2550; J3490; J7060; J7120